=== PATIENT | male | born 1980 | race American Indian/Alaskan Native ===

== ENCOUNTER 2020-03-15 14:41 | Emergency (ER) | payer SELFPAY ==
[2020-03-15 14:45] VITALS: BP 139/96
--- NOTE | 2020-03-15 15:25 | Emergency Department Report ---
ED Male HPI - General Chief complaint: Urogenital-Male Stated complaint: DISHCARGE FROM PENIS Time Seen by Provider: 03/15/20 15:07 Source: patient Mode of arrival: Ambulatory Limitations: No Limitations - History of Present Illness Initial comments: This is a 39-year-old male nontoxic, well nourished in appearance, no acute signs of distress presents to the ED with c/o slight white colored intermittent penile discharge. Patient denies any testicular pain or swelling. Patient denies any penile ulcers or lesions. Patient denies any nausea, vomiting, chest pain, shortness of breathe, fever, chills, headache, back pain, numbness, tingling, stiff neck. Patient denies any urinary symptoms. Patient denies any allergies or PMH. -: days(s) Location: penis Radiation: none Severity scale (0 -10): 0 Improves with: none Worsens with: none discharge. denies: swelling, mass, rash, urinary retention, blood in urine, dysuria, fever, nausea/vomiting, incontinence - Related Data Allergies Allergy/AdvReac Type Severity Reaction Status Date / Time No Known Allergies Allergy Unverified 03/15/20 14:42 ED Review of Systems ROS: Stated complaint: DISHCARGE FROM PENIS Other details as noted in HPI Constitutional: denies: chills, fever Eyes: denies: eye pain, eye discharge, vision change ENT: denies: ear pain, throat pain Respiratory: denies: cough, shortness of breath, wheezing Cardiovascular: denies: chest pain, palpitations Endocrine: no symptoms reported Gastrointestinal: denies: abdominal pain, nausea, vomiting, diarrhea Genitourinary: discharge. denies: urgency, dysuria, frequency, hematuria, testicular pain, testicular mass Musculoskeletal: denies: back pain, joint swelling, arthralgia Skin: denies: rash, lesions Neurological: denies: headache, weakness, paresthesias Psychiatric: denies: anxiety, depression Hematological/Lymphatic: denies: easy bleeding, easy bruising ED Past Medical Hx - Surgical History Past Surgical History?: No - Social History Smoking Status: Never Smoker Substance Use Type: Alcohol ED Physical Exam - General Limitations: No Limitations General appearance: alert, in no apparent distress - Head Head exam: Present: atraumatic, normocephalic - Eye Eye exam: Present: normal appearance - Neck Neck exam: Present: normal inspection, full ROM - Respiratory Respiratory exam: Absent: respiratory distress - Cardiovascular Cardiovascular Exam: Present: regular rate - GI/Abdominal GI/Abdominal exam: Present: soft. Absent: distended, tenderness - Extremities Exam Extremities exam: Present: normal inspection, full ROM. Absent: tenderness - Back Exam Back exam: Present: normal inspection, full ROM. Absent: tenderness, CVA tenderness (R), CVA tenderness (L), muscle spasm, paraspinal tenderness, vertebral tenderness, rash noted - Neurological Exam Neurological exam: Present: alert, oriented X3, normal gait - Psychiatric Psychiatric exam: Present: normal affect, normal mood - Skin Skin exam: Present: warm, dry, intact, normal color. Absent: rash ED Course Vital Signs 03/15/20 14:42 Temperature 98 F Pulse Rate 78 Respiratory 20 Rate Blood Pressure 139/96 O2 Sat by Pulse 98 Oximetry - Reevaluation(s) Reevaluation #1: 03/15/20 15:23 Patient is speaking in full sentences with no signs of distress noted. ED Medical Decision Making - Medical Decision Making This is a 39-year-old male that presents with nonmedical emergency. Patient is stable and was examined by me. Patient is asymptomatic and denies any symptoms. Patient states he just wants to be tested for STD. I will refer the patient for testing and treatment. At time of discharge, the patient does not seem toxic or ill in appearance. No acute signs of distress noted. Patient agrees to discharge treatment plan of care. No further questions noted by the patient. Critical care attestation.: If time is entered above; I have spent that time in minutes in the direct care of this critically ill patient, excluding procedure time. ED Disposition Clinical Impression: Possible exposure to STD Disposition: Z-07 MED SCREENING EXAM-LEFT Is pt being admited?: No Does the pt Need Aspirin: No Condition: Stable Instructions: Safe Sex (ED) Additional Instructions: Follow-up with a primary care doctor and the referrals that you have been provided with or if symptoms worsen and continue return to emergency room as soon as possible. Referrals: HELEN HOLM MD [Staff Physician] - [facility] [Referring] - [facility]
== END 2020-03-15 15:28 | disposition home or self-care (01) ==
LOC: ED 14:41
DX: R36.9 Urethral discharge, unspecified (principal); Z53.21 Procedure and treatment not carried out due to patient leaving prior to being seen by health care provider

== ENCOUNTER 2021-01-06 21:46 | Emergency (ER) | payer SELFPAY ==
[2021-01-06 21:57] VITALS: BP 142/88
[2021-01-06] MEDS ORDERED: HYDROcodone/ACETAMINOPHEN 5-325 MG TAB PO STA (22:25)
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
--- NOTE | 2021-01-06 22:58 | XRay Report ---
XR spine lumbosacral 2-3V INDICATION / CLINICAL INFORMATION: lower back pain. COMPARISON: None available. FINDINGS: BONES/JOINT(S): No acute fracture. No significant malalignment. PARASPINAL SOFT TISSUES:No significant abnormality. ADDITIONAL FINDINGS: None. IMPRESSION: 1. No acute findings. Signer Name: Manolo Rodriguez MD Signed: 01/06/2021 10:53 PM Workstation Name: [id number]
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
== END 2021-01-07 01:30 | disposition home or self-care (01) ==
LOC: ED 21:46
DX: M54.5 Low back pain (principal); M25.551 Pain in right hip; Z79.899 Other long term (current) drug therapy; V89.2XXA Person injured in unspecified motor-vehicle accident, traffic, initial encounter; Y93.89 Activity, other specified; Y92.488 Other paved roadways as the place of occurrence of the external cause; Y99.8 Other external cause status
CPT/HCPCS: 72100; 99283

== ENCOUNTER 2021-02-03 08:54 | Emergency (ER) | payer SELFPAY ==
[2021-02-03 09:52] VITALS: BP 126/83
--- NOTE | 2021-02-03 09:57 | Emergency Department Report ---
Chief Complaint: Extremity Problem,Nontraumatic Stated Complaint: LT FOOT TOE PAIN Time Seen by Provider: 02/03/21 09:53 - HPI History of Present Illness: ATHLETES FOOT OF FEET CO PAIN HAS BEEN USING BANDAIDS WHICH HAVE MADE SKIN MOIST NO SYSTEMIC S/S NO FALL OR TRAUMA - ROS Review of Systems: FOOT RASH - Exam Vital Signs: Vital Signs 02/03/21 09:51 Temperature 98 F Pulse Rate 82 Respiratory 16 Rate Blood Pressure 126/83 [Left] O2 Sat by Pulse 97 Oximetry Physical Exam: ATHLETES FOOT MSE screening note: Focused history and physical exam performed. Due to findings the following was ordered: NO LIFE THREAT VSS NO CP OR SOB AMBULATORY HERE WITH SIMPLE RASH EDUCATED ON OTC CARE AND MANAGEMENT MSE FROM ER TO PCP PT VERBALIZES UNDERSTANDING Patient discussed with doctor:: CIERA CULP ED Disposition for MSE Clinical Impression: Rash of foot Disposition: MED SCREENING EXAM-LEFT Condition: Stable Instructions: Athlete's Foot, [id number] Additional Instructions: KEEP FOOT CLEAN AND DRY CHANGE SOCKS OFTEN IF YOU NEED TO OVER THE COUNTER ATHLETES FOOT POWDER SHOULD BE USED IF THIS FAILS AFTER ABOUT 2 WEEKS SEE PCP BELOW MOTRIN OR TYLENOL IF NEEDED FOR PAIN Referrals: HELEN HOLM MD [Staff Physician] - 3-5 Days Time of Disposition: 09:54
== END 2021-02-03 10:00 | disposition home or self-care (01) ==
LOC: ED 08:54
DX: M25.572 Pain in left ankle and joints of left foot (principal); Z53.21 Procedure and treatment not carried out due to patient leaving prior to being seen by health care provider

== ENCOUNTER 2021-11-04 12:53 | Emergency (ER) | payer SELFPAY ==
[2021-11-05 03:12] LABS: Bilirubin,Urine NEG (Negative); Blood,Urine MOD (Negative); Color,Urine Yellow (Yellow); Protein,Urine <15 mg/dL mg/dL (Negative); RBC,Urine < 1.0 /HPF (0.0-6.0)
[2021-11-05 03:36] LABS: INR 0.87 (0.87-1.13)
[2021-11-05 03:37] LABS: Partial Thromboplastin Time 27.3 Sec. (24.2-36.6)
[2021-11-05 03:41] LABS: Eosinophils # (Auto) 0.1 K/mm3 (0.0-0.4); Eosinophils % (Auto) 2.3 % (0.0-4.3); Hematocrit 37.6 % (35.5-45.6); Hemoglobin 12.4 gm/dl (11.8-15.2); Lymphocytes # (Auto) 1.4 K/mm3 (1.2-5.4); Lymphocytes % (Auto) 25.2 % (13.4-35.0); Mean Corpuscular HGB Conc 33 % (32-34); Mean Corpuscular Volume 97 fl (84-94); Monocytes # (Auto) 0.5 K/mm3 (0.0-0.8); Monocytes % (Auto) 8.4 % (0.0-7.3); Platelet Count 176 K/mm3 (140-440); Red Blood Count 3.88 M/mm3 (3.65-5.03); Red Cell Distribution Width 14.4 % (13.2-15.2)
[2021-11-05 03:45] LABS: Alanine Aminotransferase 24 units/L (7-56); Albumin 4.4 g/dL (3.9-5); BUN/Creatinine Ratio 15; Blood Urea Nitrogen 16 mg/dL (9-20); Calcium 9.7 mg/dL (8.4-10.2); Hemolysis Index 11
[2021-11-05 03:52] LABS: Bilirubin,Direct < 0.2 mg/dL (0-0.2)
--- NOTE | 2021-11-05 04:10 | Emergency Department Report ---
ED GI Bleed HPI - General Chief complaint: GI Bleed Stated complaint: BLOOD IN STOOL Time Seen by Provider: 11/05/21 04:02 Source: patient Mode of arrival: Ambulatory Limitations: No Limitations - History of Present Illness Initial comments: Patient is 41 years old male with no significant past medical history. Patient presented to the ER stating that he had 1 episode of bloody streaked stool while at work. Patient stated that this is never happened before. He denied any vomiting blood or recent history of melena. Patient denies any fever or chills. No abdominal pain. MD complaint: blood streaked stool -: This afternoon Severity scale (0 -10): 7 Quality: cramping Consistency: now resolved Associated Symptoms: denies other symptoms - Related Data Previous Rx's Medication Instructions Recorded Last Taken Type Ketorolac [Toradol] 10 mg PO Q6H PRN #15 tablet 01/07/21 Unknown Rx methOCARBAMOL [Robaxin TAB] 750 mg PO Q8H PRN #14 tablet 01/07/21 Unknown Rx traMADoL [Ultram] 50 mg PO Q6HR PRN #20 tablet 01/07/21 Unknown Rx Allergies Allergy/AdvReac Type Severity Reaction Status Date / Time No Known Allergies Allergy Unverified 03/15/20 14:42 ED Review of Systems ROS: Stated complaint: BLOOD IN STOOL Other details as noted in HPI Comment: All other systems reviewed and negative Constitutional: denies: chills, fever Respiratory: denies: cough, shortness of breath, SOB with exertion, SOB at rest Cardiovascular: denies: chest pain, palpitations Gastrointestinal: hematochezia. denies: abdominal pain, nausea, vomiting, diarrhea, constipation, hematemesis, melena Genitourinary: denies: dysuria Musculoskeletal: denies: back pain Neurological: denies: headache, weakness, numbness, paresthesias, confusion ED Past Medical Hx - Social History Smoking Status: Never Smoker Substance Use Type: None - Medications Home Medications: Home Medications Medication Instructions Recorded Confirmed Last Taken Type Ketorolac [Toradol] 10 mg PO Q6H PRN #15 tablet 01/07/21 Unknown Rx methOCARBAMOL [Robaxin TAB] 750 mg PO Q8H PRN #14 tablet 01/07/21 Unknown Rx traMADoL [Ultram] 50 mg PO Q6HR PRN #20 tablet 01/07/21 Unknown Rx ED Physical Exam - General Limitations: No Limitations General appearance: alert, in no apparent distress - Head Head exam: Present: atraumatic, normocephalic, normal inspection - Eye Eye exam: Present: normal appearance - ENT ENT exam: Present: normal exam, normal orophraynx, mucous membranes moist - Neck Neck exam: Present: normal inspection, full ROM. Absent: tenderness, meningismus - Respiratory Respiratory exam: Present: normal lung sounds bilaterally - Cardiovascular Cardiovascular Exam: Present: regular rate, normal rhythm, normal heart sounds - GI/Abdominal GI/Abdominal exam: Present: soft, normal bowel sounds. Absent: distended, tenderness, guarding, rebound, rigid, organomegaly, mass, bruit, pulsatile mass, hernia - Rectal Rectal exam: Present: deferred - Extremities Exam Extremities exam: Present: normal inspection, full ROM, normal capillary refill. Absent: tenderness - Back Exam Back exam: Present: normal inspection, full ROM. Absent: CVA tenderness (R), CVA tenderness (L) - Neurological Exam Neurological exam: Present: alert, oriented X3, CN II-XII intact, normal gait, reflexes normal. Absent: motor sensory deficit - Psychiatric Psychiatric exam: Present: normal mood - Skin Skin exam: Present: warm, intact, normal color ED Course Vital Signs 11/04/21 11/05/21 11/05/21 14:26 03:10 03:13 Temperature 98.6 F 98.0 F Pulse Rate 86 88 Respiratory 18 15 Rate Blood Pressure 158/105 140/83 [Right] O2 Sat by Pulse 98 100 100 Oximetry ED Medical Decision Making - Lab Data Result diagrams: 11/05/21 03:11 11/05/21 03:11 - Medical Decision Making Patient is 41 years old male with no significant past medical history. Patient presented to the ER stating that he had 1 episode of bloody streaked stool while at work. Patient stated that this is never happened before. He denied any vomiting blood or recent history of melena. Patient denies any fever or chills. No abdominal pain. Patient remained stable in the ER with stable vital sign. Labs reviewed and is unremarkable including hemoglobin of 12.5. No active bleeding observed in the ER. 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 Critical care attestation.: If time is entered above; I have spent that time in minutes in the direct care of this critically ill patient, excluding procedure time. ED Disposition Clinical Impression: GI bleed Disposition: 01 HOME / SELF CARE / HOMELESS Is pt being admited?: No Condition: Stable Instructions: Gastrointestinal Bleeding Referrals: [facility] [Provider Group] - 3-5 Days Forms: Accompanied Note, Work/School Release Form(ED)
[2021-11-05 04:53] VITALS: BP 139/79
== END 2021-11-05 04:55 | disposition home or self-care (01) ==
LOC: ED 12:53
DX: K92.1 Melena (principal)
CPT/HCPCS: 36415; 80048; 80076; 81001; 85025; 85610; 85730; 86850; 86900; 86901; 99283

== ENCOUNTER 2021-11-11 06:42 | Emergency (ER) | payer SELFPAY | END 2021-11-11 08:22 | disposition left against medical advice (07) | LOC: ED 06:42 | DX: I10 Essential (primary) hypertension (principal); Z53.21 Procedure and treatment not carried out due to patient leaving prior to being seen by health care provider ==